=== PATIENT | female | born 1985 | race Caucasian/White ===

== ENCOUNTER 2020-03-30 08:00 | Outpatient (CLI) | payer BC, MEDICAID ==
[2020-03-30 17:54] LABS: MUDS CUTOFF CONCENTRATIONS CUTOFF CONC BELOW:
[2020-03-30 18:10] LABS: AMPHETAMINE SCREEN,URINE NEGATIVE (NEGATIVE); BENZODIAZEPINES SCREEN, URINE NEGATIVE (NEGATIVE); COCAINE SCREEN URINE NEGATIVE (NEGATIVE); METHADONE SCREEN, URINE NEGATIVE (NEGATIVE); METHAMPHETAMINES SCREEN, URINE NEGATIVE (NEGATIVE); OPIATE SCREEN, URINE NEGATIVE (NEGATIVE); OXYCODONE SCREEN, URINE NEGATIVE (NEGATIVE); PROPOXYPHENE SCREEN, URINE NEGATIVE (NEGATIVE); TRICYCLIC ANTIDEPRESSANT,URINE NEGATIVE (NEGATIVE)
== END 2020-03-30 23:59 | disposition home or self-care (01) ==
LOC: LAB.R 08:00
PROVIDERS: ATTEND Obstetrics & Gynecology
DX: Z32.01 Encounter for pregnancy test, result positive (principal)
CPT/HCPCS: 80306

== ENCOUNTER 2020-05-01 16:34 | Outpatient (CLI) | payer BC, MEDICAID ==
--- NOTE | 2020-05-02 16:43 | Ultrasound Report ---
PROCEDURE: OB First Trimester INDICATIONS: POSITIVE TEST OUTSIDE/PRIOR DATING DATA: Last menstrual period (LMP): 02/13/2020. LMP-based estimated date of delivery (GAUDENCIO): . First dating scan (date and location): 05/01/2020. Estimated date of delivery (GAUDENCIO) from first dating scan: . TECHNIQUE: Real-time scanning was performed of the fetus and maternal pelvic organs, with image documentation. COMPARISON: None FINDINGS: Embryo: Single live intrauterine is identified with crown-rump length measuring 5.4 sq cm spine to 12 weeks 0 days. Heart tones are identified at 156 bpm. RICK is grossly within normal limits. Placenta is anterior. Maternal organs: Ovaries demonstrate a left corpus luteal cyst.. Limited images through the kidneys demonstrate no hydronephrosis. IMPRESSION: 1. Single live intrauterine with ultrasound gestational age of 12 weeks 0 days with an ultr asound GAUDENCIO of 11/13/2020 2. Follow-up imaging at 20-22 weeks for dates and anatomy is recommended. Reviewed by: Margarita Metzger MD on 05/02/2020 4:41 PM PDT Approved by: Margarita Metzger MD on 05/02/2020 4:41 PM PDT Station ID: [id number]
== END 2020-05-01 16:35 | disposition home or self-care (01) ==
LOC: DI 16:34
PROVIDERS: ATTEND Obstetrics & Gynecology
DX: Z32.01 Encounter for pregnancy test, result positive (principal)
CPT/HCPCS: 76801

== ENCOUNTER 2020-05-04 07:00 | Outpatient (CLI) | payer MEDICAID ==
[2020-05-04 23:05] LABS: TRICHOMONAS VAGINALIS DNA NEGATIVE (NEGATIVE)
== END 2020-05-04 23:59 | disposition home or self-care (01) ==
LOC: LAB.R 07:00
PROVIDERS: ATTEND Nurse Practitioner Obstetrics & Gynecology
DX: Z11.3 Encounter for screening for infections with a predominantly sexual mode of transmission (principal)
CPT/HCPCS: 87491; 87591; 87661

== ENCOUNTER 2020-05-10 16:45 | Outpatient (CLI) | payer SELFPAY | END 2020-05-10 16:46 | disposition home or self-care (01) | LOC: LAB 16:45 | PROVIDERS: ATTEND Nurse Practitioner Obstetrics & Gynecology | DX: Z34.81 Encounter for supervision of other normal pregnancy, first trimester (principal); Z36.9 Encounter for antenatal screening, unspecified | CPT/HCPCS: 36415 ==

== ENCOUNTER 2020-06-07 16:41 | Outpatient (CLI) | payer BC, MEDICAID ==
[2020-06-07 16:58] LABS: BILIRUBIN,URINE NEGATIVE (NEGATIVE); GLUCOSE, URINE (UA) NEGATIVE (NEGATIVE); KETONES,URINE (UA) NEGATIVE (NEGATIVE); LEUKOCYTE ESTERASE, URINE NEGATIVE (NEGATIVE); NITRITE,URINE NEGATIVE (NEGATIVE); OCCULT BLOOD,URINE NEGATIVE (NEGATIVE); PROTEIN,URINE NEGATIVE (NEGATIVE); UROBILINOGEN,URINE 0.2 (NORMAL) E.U./dL (NORMAL)
[2020-06-07 17:09] LABS: BACTERIA,URINE Rare /HPF (None Seen); CLARITY,URINE CLEAR (CLEAR); RBC,URINE None Seen /HPF (0-5); SQUAMOUS EPITHELIAL CELL,UR FEW Squamous (<= Few)
== END 2020-06-07 16:42 | disposition home or self-care (01) ==
LOC: LAB 16:41
PROVIDERS: ATTEND Advanced Practice Midwife
DX: Z34.90 Encounter for supervision of normal pregnancy, unspecified, unspecified trimester (principal); Z36.89 Encounter for other specified antenatal screening
CPT/HCPCS: 81001; 87086

== ENCOUNTER 2020-07-04 15:23 | Outpatient (CLI) | payer BC, MEDICAID ==
--- NOTE | 2020-07-05 14:55 | Ultrasound Report ---
PROCEDURE: OB Detailed Eval INDICATIONS: SUPERVISION OF OUTSIDE/PRIOR DATING DATA: Last menstrual period (LMP): 02/13/2020. LMP-based estimated date of delivery (GAUDENCIO): 11/19/20. First dating scan (date and location): 05/01/2020. Estimated date of delivery (GAUDENCIO) from first dating scan: 11/13/20. TECHNIQUE: Real-time scanning was performed of the fetus, with image documentation and biometric measurements. Endovaginal scanning: Not performed. COMPARISON: OB ultrasound 05/01/2020. FINDINGS: General: A single living intrauterine gestation is present. Presentation: Variable Placenta: Placental position is anterior, without previa. Amniotic fluid index: 16.5 cm, 69.3% for gestational age; largest pocket 4.77 cm. heart rate: 140 beats per minute. Maternal cervical canal: 5.8 cm long; normal length is 2.5 cm or more. biometrics: Biparietal diameter: 20 weeks 5 days Head circumference: 21 weeks 0 day Abdominal circumference: 21 weeks 4 days Femur length: 20 weeks 1 day Estimated gestational age from initial scan: 21 weeks 1 day. Composite gestational age from present scan: 20 weeks 5 days Estimated weight and percentile: 387 gm; 33% for contrast sedation age Measurement variability in biometric dating: +/- 10 days from 12-20 weeks gestation, +/- 2 weeks from 20-30 weeks gestation, +/- 3 weeks at 30 weeks gestation or later. Anatomic survey: Neuro: Ventricles are normal at less than 10 mm. Cisterna magna is normal at 3-11 mm. Cerebellum i s normal in size and morphology. Nuchal skin fold: Not well seen. Face: Nose and lips, facial profile are normal. Spine: No evidence for spina bifida. Heart: 4-chambered heart is present, with normal ventricular outflow tracts. Diaphragm: Diaphragm is intact. Stomach: Left-sided stomach is present. Kidneys: Mild bilateral renal pelviectasis (4.4 mm the right and 5 mm on the left). Normal is less t bonilla 5 mm in 2nd trimester, less than 7 mm in 3rd trimester. Cord: 3 vessel cord has orthotopic insertion. Bladder: Normal in size. Extremities: All 4 extremities are visualized. IMPRESSION: 1. A single living intrauterine gestation with appropriate interval growth. 2. Mild renal pelviectasis bilaterally. Follow-up imaging is suggested. 3. nuchal area not well seen. 4. Otherwise normal anatomic survey. Reviewed by: Georgiana Huang MD on 07/05/2020 2:54 PM PST Approved by: Georgiana Huang MD on 07/05/2020 2:54 PM PST Station ID: [id number]
== END 2020-07-04 15:24 | disposition home or self-care (01) ==
LOC: DI 15:23
PROVIDERS: ATTEND Advanced Practice Midwife
DX: Z36.89 Encounter for other specified antenatal screening (principal); O35.8XX0 Maternal care for other (suspected) fetal abnormality and damage, not applicable or unspecified; Z3A.21 21 weeks gestation of pregnancy

== ENCOUNTER 2020-07-17 16:54 | Outpatient (CLI) | payer BC, MEDICAID ==
[2020-07-17 17:41] LABS: BASOPHILS % (AUTO) 0.3 %; EOSINOPHILS # (AUTO) 0.1 10^3/uL (0.0-0.7); EOSINOPHILS % (AUTO) 0.8 %; HGB - HEMOGLOBIN 11.7 g/dL (12.0-16.0); LYMPHOCYTES # (AUTO) 2.4 10^3/uL (1.5-3.5); LYMPHOCYTES % (AUTO) 20.4 %; MEAN CORPUSCULAR HGB CONC 34.4 g/dL (32.0-36.0); MEAN CORPUSCULAR VOLUME 104.6 fL (81.0-99.0); MEAN PLATELET VOLUME 11.2 fL (7.9-10.8); MONOCYTES # (AUTO) 0.8 10^3/uL (0.0-1.0); MONOCYTES % (AUTO) 6.9 %; NEUTROPHILS # (AUTO) 8.2 10^3/uL (1.5-6.6); NEUTROPHILS % (AUTO) 70.7 %; PLT - PLATELET COUNT 151 10^3/uL (130-450); RED BLOOD COUNT 3.25 10^6/uL (4.20-5.40); RED CELL DISTRIBUTION WIDTH 13.2 % (12.0-15.0); WHITE BLOOD COUNT 11.6 x10^3/uL (4.8-10.8)
[2020-07-18 12:17] LABS: HEPATITIS C ANTIBODY NON-REACTIVE (NON-REACTIVE)
[2020-07-18 12:18] LABS: HEPATITIS B SURFACE ANTIGEN NON-REACTIVE (NON-REACTIVE)
[2020-07-18 13:22] LABS: HIV AG/AB 4TH GEN NON-REACTIVE (NON-REACTIVE)
== END 2020-07-17 16:55 | disposition home or self-care (01) ==
LOC: LAB 16:54
PROVIDERS: ATTEND Obstetrics & Gynecology
DX: Z34.90 Encounter for supervision of normal pregnancy, unspecified, unspecified trimester (principal)
CPT/HCPCS: 36415; 81599; 85025; 86592; 86762; 86787; 86803; 86850; 86900; 86901; 87340; 87389

== ENCOUNTER 2020-08-01 16:41 | Outpatient (CLI) | payer BC, MEDICAID ==
--- NOTE | 2020-08-02 10:09 | Ultrasound Report ---
PROCEDURE: OB F/U or Repeat INDICATIONS: F/U PYELECTASIS OUTSIDE/PRIOR DATING DATA: Last menstrual period (LMP): 02/13/2020. LMP-based estimated date of delivery (GAUDENCIO): 11/19/2020. First dating scan (date and location): 05/01/2020. Estimated date of delivery (GAUDENCIO) from first dating scan: 11/13/2020. TECHNIQUE: Real-time scanning was performed of the fetus, with image documentation and biometric measurements. Endovaginal scanning: Performed COMPARISON: None. FINDINGS: General: A single living intrauterine gestation is present. Presentation: Cephalic Placenta: Placental position is anterior, without previa. Amniotic fluid index: 17.8 cm, 75.4% for gestational age. heart rate: 145 beats per minute. Maternal cervical canal: 4.7 cm long; normal length is 2.5 cm or more. biometrics: Biparietal diameter: Not obtained Head circumference: Not obtained Abdominal circumference: Not obtained Femur length: Not obtained Estimated gestational age from initial scan: 25 weeks 1 day. Composite gestational age from present scan: Not obtained Estimated weight and percentile: Not obtained Measurement variability in biometric dating: +/- 10 days from 12-20 weeks gestation, +/- 2 weeks from 20-30 weeks gestation, +/- 3 weeks at 30 weeks gestation or more. The chest/diaphragm, stomach/abdomen, and urinary bladder have a grossly normal appearance. A placent al garcía is noted. Mild bilateral pelviectasis was noted bilaterally on this ultrasound dated 07/04/2020 measuring 5.2 mm on the left and 4.4 mm on the right. On today's ultrasound the kidneys appear normal with no pelviec tasis. IMPRESSION: Mild bilateral renal pelviectasis on 07/05/2020 has resolved. Reviewed by: Jonathon Mae on 08/02/2020 10:08 AM PST Approved by: Jonathon Mae on 08/02/2020 10:08 AM PST Station ID: [id number]
== END 2020-08-01 16:42 | disposition home or self-care (01) ==
LOC: DI 16:41
PROVIDERS: ATTEND Obstetrics & Gynecology
DX: O26.832 Pregnancy related renal disease, second trimester (principal); N28.9 Disorder of kidney and ureter, unspecified; Z3A.25 25 weeks gestation of pregnancy

== ENCOUNTER 2020-08-17 08:37 | Outpatient (CLI) | payer BC, MEDICAID ==
[2020-08-17 09:56] LABS: HGB - HEMOGLOBIN 12.1 g/dL (12.0-16.0); MEAN CORPUSCULAR HEMOGLOBIN 36.6 pg (27.0-31.0); MEAN CORPUSCULAR HGB CONC 34.5 g/dL (32.0-36.0); MEAN PLATELET VOLUME 11.9 fL (7.9-10.8); RED BLOOD COUNT 3.31 10^6/uL (4.20-5.40); RED CELL DISTRIBUTION WIDTH 13.2 % (12.0-15.0); WHITE BLOOD COUNT 10.3 x10^3/uL (4.8-10.8)
== END 2020-08-17 08:38 | disposition home or self-care (01) ==
LOC: LAB 08:37
PROVIDERS: ATTEND Advanced Practice Midwife
DX: Z34.90 Encounter for supervision of normal pregnancy, unspecified, unspecified trimester (principal); Z36.89 Encounter for other specified antenatal screening
CPT/HCPCS: 36415; 82950; 85027

== ENCOUNTER 2020-10-30 08:00 | Outpatient (CLI) | payer BC, MEDICAID | END 2020-10-30 23:59 | disposition home or self-care (01) | LOC: LAB 08:00 | PROVIDERS: ATTEND Nurse Practitioner Obstetrics & Gynecology | DX: Z36.85 Encounter for antenatal screening for Streptococcus B (principal) | CPT/HCPCS: 87797 ==

== ENCOUNTER 2020-11-12 17:48 | Inpatient (IN) | payer BC, MEDICAID ==
[2020-11-12 19:02] LABS: RUPTURE OF MEMBRANES PLUS POSITIVE (NEGATIVE)
[2020-11-12] MEDS ORDERED: OXYTOCIN 10 UNIT/ML VIAL IM PRN (19:16)
[2020-11-12] MEDS ORDERED: CARBOPROST TROMETHAMINE 250 MCG/ML AMP IM PRN (19:16)
[2020-11-12] MEDS ORDERED: miSOPROStoL 200 MCG TABLET BC PRN (19:16)
[2020-11-12] MEDS ORDERED: METHYLERGONOVINE 0.2 MG/ML VIAL IM PRN (19:16)
[2020-11-12] MEDS ORDERED: TRANEXAMIC ACID IN NACL 1,000 MG/100 ML BAG IV PRN (19:16)
[2020-11-12] MEDS ORDERED: OXYTOCIN/SODIUM CHLORIDE 500 ML IV PRN (19:16)
[2020-11-12] MEDS ORDERED: SODIUM CHLORIDE FLUSH 0.9% 10 ML SYRINGE IVP PRN (19:16)
[2020-11-12 19:55] LABS: BASOPHILS % (AUTO) 0.3 %; EOSINOPHILS # (AUTO) 0.1 10^3/uL (0.0-0.7); EOSINOPHILS % (AUTO) 0.6 %; HCT - HEMATOCRIT 38.4 % (37.0-47.0); HGB - HEMOGLOBIN 13.4 g/dL (12.0-16.0); LYMPHOCYTES # (AUTO) 2.5 10^3/uL (1.5-3.5); LYMPHOCYTES % (AUTO) 15.7 %; MEAN CORPUSCULAR HEMOGLOBIN 35.8 pg (27.0-31.0); MEAN CORPUSCULAR HGB CONC 34.9 g/dL (32.0-36.0); MEAN CORPUSCULAR VOLUME 102.7 fL (81.0-99.0); MEAN PLATELET VOLUME 11.8 fL (7.9-10.8); MONOCYTES # (AUTO) 1.2 10^3/uL (0.0-1.0); MONOCYTES % (AUTO) 7.5 %; NEUTROPHILS # (AUTO) 11.7 10^3/uL (1.5-6.6); NEUTROPHILS % (AUTO) 74.6 %; PLT - PLATELET COUNT 144 10^3/uL (130-450); RED BLOOD COUNT 3.74 10^6/uL (4.20-5.40); RED CELL DISTRIBUTION WIDTH 12.7 % (12.0-15.0); WHITE BLOOD COUNT 15.7 x10^3/uL (4.8-10.8)
--- NOTE | 2020-11-12 21:13 | HISTORY & PHYSICAL EXAMINATION ---
Admit History - Visit Reason Visit Reason: Contractions - : 1 Parity: 0 Premature: 0 Ectopic: 0 : 0 Care: positive: Other ([facility]) Risk/History: positive: None Complications This : positive: None Smoking Status: Former smoker - Mother's Labs Mother's Blood Type: positive: A Mother's RH: positive: Positive GBS: positive: Group B Step Negative Rubella Status: positive: Immune - Other Maternal History Other Maternal History: -35yo at 39.0wks gestation who presents to Labor and Delivery with contractions that are about every 4 to 5 minutes. -Upon admission to triage she reports intermittent wetness to her underwear over the last week. She reports an increase in mucus like discharge last night, but no noticeable increase in clear fluid output. -Reports movement -Denies ctx/VB/LOF - care with [facility] which has been adequate - Complications *None -Dating Criteria *Initial U/S: 05/01/2020 @ 12.0wks c/w LMP dating -OB Hx *G1: current -Medications * vitamin-daily -Allergies *Bee Stings (severe)- throat constriction, hives *Minocyclen (mild)- itchy feet -Medical History *Non contributory -Surgical History *Spinal fusion 2009 -Family History *MGF- alcoholism *PGM- CAD *PGF- Alzheimers dementia -Social History *Non contributory - Labs, Immunizations, and Findings Initial U/S: 05/01/2020 @ 12.0wks c/w LMP dating A pos/Rubella immune VZV: immune Genetic testing: [place] negative FAS: Anterior placenta. efw 33%. 3VC. Normal fluid. Mild pelviectasis, f/u indicated. Unlcear nuchal views, f/u indicated. 08/01/2020 Completion FAS WNL; pylectasis resolved Glucola 101 Influenza: 05/04/2020 TDAP 09/05/2020 GBS at 37.1- negative HSV: denies self and partner Breast pump Rx -has MOD: Anticipate ; Partner Luis. GIRL: Erika; Concern for 5 fused vertebrea surrounding t12; desires unmedicated delivery. Consider anesthesia consult on admission for evaluation in case of emergency however pt desires unmedicatd delivery pp contraception: natural family planning, interested in Phexxi, condoms pap: 2018 WNL- pap pp (requested report) -SVE /-2 -ROM+ positive -Vertex by wilder -EFW by anastacio's 7# - Physical Exam: Normocephalic, atraumatic Abdomen gravid, soft, nontender Edema- none Psych- wnl -FHTs per flowsheet -Assessment *35yo at 39.0wks gestation in early labor *Ruptured for unknown length of time- advised to ACOG recommendation to start augmentation, including risks/benefits. Would like to wait. *Afebrile, no tachycardia, WBCs 15.7- no signs of infection at this time * Heart Tones- Category II due to periods of minimal variability, otherwise reassuring -Plan *Admit to L&D *Consider Pitocin augmentation when patient permits, encouraged reevaluation of labor progress after six hours of known rupture *Monitoring- Continuous *Comfort measures available- position changes, whirlpool tub, fentanyl, and epidural per maternal preference *Diet/Activity- per maternal preference *Anticipate Meds/Allgy - Allergies Allergies/Adverse Reactions: Allergies Allergy/AdvReac Type Severity Reaction Status Date / Time bee venom protein (honey bee) Allergy Unknown Verified 11/12/20 19:50 minocycline Allergy Itching Verified 11/12/20 20:14 Physical - Abdominal Exam Vital Signs: Temp Pulse Resp BP Pulse Ox 37.0 C 75 16 112/61 100 11/12/20 19:38 11/12/20 19:38 11/12/20 19:38 11/12/20 19:38 11/12/20 18:05
[2020-11-12] MEDS ORDERED: OXYTOCIN/SODIUM CHLORIDE 500 ML IV SCH (23:45)
--- NOTE | 2020-11-12 23:57 | PROVIDER PROGRESS NOTE ---
Labor Progress Note - Uterine Monitoring Uterine Monitoring Mode: positive: External toco Contraction Frequency (min/apart): 3-5 Contraction Intensity: positive: Moderate Uterine Resting Tone: positive: Soft - Monitoring Monitor Mode: positive: External ultrasound Heart Rate Baseline: 135 Heart Rate Variability: positive: Moderate (6-25 bmp) Accelerations: positive: Present, 15x15 Decelerations: positive: None Strip Review: positive: Category I - Vaginal Exam Dilation (in cm): 3 Effacement (%): 90 Station: -1 Cervical Position: Anterior - Labor Progress Note Labor Progress Note/Additional Text: S: Felicia is resting in bed, using nitrous gas to manage labor pains. FOB is supportiv e at bedside. She reports the contractions as feeling stronger than before. She is feeling better after having not eaten much since noon and has now had some nourishment. O: SVE -1/soft/anterior/vertex- a forebag is felt during exam Underwear on with no pad, minimal moisture noted on underwear and none on disposable pad beneath her Afebrile A: 35yo at 39.0wks gestation Modest cervical change Discussed augmentation vs expectant management Reassuring FHT P: Continue with nitrous for labor pain management, may utilize tub, position changes, fentanyl, or epidural per maternal preference Would like to wait for augmentation at this time; pitocin ordered for if desired or if contractions slow Continuous monitoring Anticipate
[2020-11-13] MEDS ORDERED: SODIUM CHLORIDE FLUSH 0.9% 10 ML SYRINGE IVP SCH (01:00)
[2020-11-13] MEDS: LACTATED RINGERS 1,000 ML IV SCH ×2 (04:35→14:36)
--- NOTE | 2020-11-13 07:49 | PROVIDER PROGRESS NOTE ---
Labor Progress Note - Uterine Monitoring Uterine Monitoring Mode: positive: External toco Contraction Frequency (min/apart): 2-4 Contraction Intensity: positive: Moderate to strong Uterine Resting Tone: positive: Soft - Monitoring Monitor Mode: positive: External ultrasound Heart Rate Baseline: 140 Heart Rate Variability: positive: Moderate (6-25 bmp) Accelerations: positive: Present, 15x15 Decelerations: positive: None Strip Review: positive: Category I - Vaginal Exam Dilation (in cm): 3.5 Effacement (%): 90 Station: -1 Cervical Position: Anterior - Labor Progress Note Labor Progress Note/Additional Text: S: Felicia is struggling with her contractions, tearful. Utilizing nitrous oxide for labor management. FOB supportive. She is declining any caloric intake right now, reporting she feels acidic. Anesthesia consult was discussed with the RN, however Felicia declines at this time. O: SVE at 0430 3.5/90/-1/forebag Pitocin at 4mU/min Afebrile A: 35yo at 39.1wks gestation No significant cervical change P: Continue with pitocin augmentation, was very slow in the night, encouraged oncoming RN to ensure effective labor pattern. Will recheck cervix when pattern effective for four hours Encouraged use of whirlpool tub Anesthesia made aware of presence of patient with history of lumbar fusion Reassured Felicia to normalcy of slow labor progression prior to 4-6cm, and discussed need for ongoing augmentation due to unclear rupture time Anticipate
[2020-11-13] MEDS ORDERED: ONDANSETRON 4 MG/2 ML VIAL IVP PRN (09:51)
--- NOTE | 2020-11-13 10:46 | PROVIDER PROGRESS NOTE ---
Labor Progress Note - Uterine Monitoring Uterine Monitoring Mode: positive: External toco Contraction Frequency (min/apart): 2-4 Contraction Intensity: positive: Moderate to strong Uterine Resting Tone: positive: Soft - Monitoring Monitor Mode: positive: External ultrasound Heart Rate Baseline: 150 Heart Rate Variability: positive: Moderate (6-25 bmp) Accelerations: positive: Present, 15x15 Decelerations: positive: None - Vaginal Exam Dilation (in cm): 6 Effacement (%): 90 Station: 0 Cervical Position: Anterior - Labor Progress Note Labor Progress Note/Additional Text: S: Felicia is pacing around the room, using position changes and breathing techniques to manage labor discomfort. FOB is supportive at her side. She is coping well. O: Blood show SVE 6/90/0/ no forebag felt (not examined through a contraction) Underwear present, not wet Pitocin at 5mU/min A: 35yo at 39.1wks gestation in active labor Adequate cervical change Adequate uterine activity Reassuring FHTs P: Anticipate Continue with pitocin augmentation Continuous monitoring Comfort measures per maternal preference
[2020-11-13] MEDS: LIDOCAINE-MPF 1% 30 ML VIAL ID PRN ×2 (17:25→17:50)
[2020-11-13] MEDS ORDERED: fentaNYL 100 MCG/2 ML VIAL IVP ONE (17:40)
[2020-11-13] MEDS ORDERED: WITCH HAZEL/GLYCERIN 1 PAD TOP PRN (18:16)
[2020-11-13] MEDS ORDERED: HYDROCORTISONE 1% CREAM 28 GM TUBE PR PRN (18:16)
--- NOTE | 2020-11-13 18:22 | DELIVERY NOTE ---
Delivery Note - Labor Labor: positive: Spontaneous, Augmented by oxytocin - Delivery Method Delivery Method: positive: Spontaneous vaginal delivery - Presentation Presentation: positive: [place] - left occiput anterior - Nuchal Cord Nuchal Cord: positive: None - Amniotic Fluid Description Amniotic Fluid Description: positive: Clear - Laceration Laceration: positive: 3rd degree, Perineal, Vaginal - Suture Suture Type: positive: Vicryl Suture Size: positive: 2-0, 3-0 - Delivery Outcome Delivery Outcome: positive: Livebirth - Marks: positive: Placed in direct skin contact with mother, Stimulated, [place] used sex: positive: Female : 6 : 9 - Cord Cord: positive: 3 vessels - Placenta Placenta: positive: Intact, Spontaneous - Estimated Blood Loss Estimated Blood Loss (in cc): 300 - Post Delivery Events Post Delivery Events: positive: No post delivery events - Delivery Comments (Free Text/Narrative) Delivery Comments (Free Text/Narrative): Note: Labor: This 35 year old, , @39.0 wks gestation by 12.0 week Ultrasound, confirmed by LMP, presented @ 1800 in early labor with report of leaking fluid. ROM+ positive. Cervix was 3/75/-2 and vertex. FHR pattern demonstrated 135 baseline in a Category I pattern. Normal labor course. Augmentation with Pitocin initiated. AROM occurred at 1517 and amount and color of fluid were noted to be moderate and clear. : Normal of a 3560gm female , named Erika, on 11/13/2020 @ 1707. Nuchal not present. The was placed on maternal abdomen, stimulated, dried and placed skin to skin. Apgars 6 at one minute and 9 at five minutes. The umbilical cord was allowed to stop pulsating at which time it was doubly clamped by CNM and cut by FOB. Pitocin administered via IV for hemostasis. Fundal massage and gentle cord traction applied for active third stage management. Cord blood was obtained. Placenta delivered spontaneously and intact at 1717. Three vessel cord. EBL 300mL. Fourth Stage: Uterine fundus firm and without excessive bleeding. The perineum, vagina, and cervix were inspected and found have sustained a third degree vaginal and perineal laceration- backup MD called in to do repair. Please see procedure note. Vaginal and rectal examination following repair was done. Tissues well approximated. initiated. Family bonding well. Both mother and baby are in stable condition.
--- NOTE | 2020-11-13 18:49 | PROCEDURE REPORT ---
Hospitalist Procedure Note - Procedure Note Procedure Note: Asked by CNM to evaluate patient's laceration for possible 3rd degree laceration. With a rectal exam, a 1cm split in the capsule of the external anal sphinctor was seen. A few muscle fibers were disrupted but it was not even close to full-thickness. The laceration was numbed with local, pt was given fentanyl IV as well for pain control. The capsule was reapproximated with a 2-0 vicryl running suture. A finger was placed in the rectum throughout the capsule closure and no sutures were placed through the rectal mucosa. The remainder of the laceration was closed with 2-0 and 4-0 vicryl to restore normal anatomy. Patient returned to [facility] care for remainder of course.
[2020-11-13] MEDS: ACETAMINOPHEN 500 MG TABLET PO SCH (20:22)
[2020-11-13] MEDS: IBUPROFEN 600 MG TABLET PO SCH (20:22)
[2020-11-13] MEDS: DOCUSATE SODIUM 100 MG CAPSULE PO SCH (20:23)
[2020-11-14] MEDS: IBUPROFEN 600 MG TABLET PO SCH ×3 (04:27→22:23)
[2020-11-14] MEDS: DOCUSATE SODIUM 100 MG CAPSULE PO SCH ×2 (08:19→22:24)
[2020-11-14] MEDS: ACETAMINOPHEN 500 MG TABLET PO SCH (08:19)
--- NOTE | 2020-11-14 15:31 | PROVIDER PROGRESS NOTE ---
Subjective - Prog Note Date Prog Note Date: 11/14/20 Prog Note Time: 14:30 - Subjective Pt reports feeling: Improved Subjective: S: Felicia is resting in bed, with her body tilted to one side. She reports that her bottom is still quite sore, but ice, position changes, and NSAIDs are effective for management. She reports as going well. Her throat is sore, likely from the noises of an unmedicated delivery, and she is requesting medication for this She reports her bleeding as like a normal period O: Lochia rubra-moderate Fundus firm A: 35yo s/p on 11/13/2020 with 3rd degree laceration Normal recovery P: Cepacol q2h prn throat discomfort Continue with routine care Evaluate for discharge home tomorrow Objective - Vital Signs/Intake & Output Vital Signs: Vital Signs x48h Temp Pulse Resp BP Pulse Ox 11/14/20 09:00 37.0 C 84 14 119/63 100 Intake & Output: Intake & Output 11/11/20 11/12/20 11/13/20 11/14/20 23:59 23:59 23:59 23:59 Intake Total 1012.583 Output Total 500 Balance 512.583 - Lab Results Fish Bones: 11/12/20 19:35 Other Labs: Lab Results x24hrs 11/12/20 Range/Units 20:25 Coronavirus (PCR) NEGATIVE
[2020-11-14] MEDS: BENZOCAINE/MENTHOL LOZENGE MM PRN ×3 (16:39→22:23)
[2020-11-15] MEDS: IBUPROFEN 600 MG TABLET PO SCH (06:08)
[2020-11-15] MEDS: BENZOCAINE/MENTHOL LOZENGE MM PRN (06:08)
[2020-11-15 08:50] VITALS: BP 125/67
--- NOTE | 2020-11-15 09:38 | PROVIDER PROGRESS NOTE ---
Subjective - Prog Note Date Prog Note Date: 11/15/20 Prog Note Time: 09:35 - Subjective Pt reports feeling: Improved Subjective: S: Felicia is resting in bed and holding sleeping Erika. She has had some difficulties overnight but has greatly improved overnight. She reports her bleeding as filling up about a pad and a half since midnight. She denies significant discomfort in her perineum. O: Lochia rubra Fundus firm A: 35yo s/p on pp day 2 Normal recovery P: Continue with routine care Evaluate for discharge home today Objective - Vital Signs/Intake & Output Vital Signs: Vital Signs x48h Temp Pulse Resp BP BP Pulse Ox 11/15/20 08:43 37.3 C 90 16 125/67 100 11/15/20 03:56 71 18 101/46 L 100 Intake & Output: Intake & Output 11/12/20 11/13/20 11/14/20 11/15/20 23:59 23:59 23:59 23:59 Intake Total 1012.583 320 100 Output Total 500 Balance 512.583 320 100 - Lab Results Fish Bones: 11/12/20 19:35
--- NOTE | 2020-11-15 09:47 | DISCHARGE SUMMARY ---
Discharge Summary - HPI History of Present Illness: Admit Date 11/12/2020 Discharge Date 11/15/2020 Diagnosis on Admission: 1. A 35yo at 39.0 week intrauterine 2. Early Active Labor- with unknown ROM time Diagnosis on Discharge 1. A 35yo s/p spontaneous vaginal delivery on 11/13/2020 2. Normal recovery Brief History: She is a patient at [facility] who presented on 11/12/2020 with complaints of contractions and report of wetness over the last week. The patient was found to contract every 2 to 5 minutes and her cervix was 3cm dilated, 75%effaced, and -7 station. She as augmented with pitocin and spontaneously delivered a viable female named Erika. Apgars were 6 and 9- and 1 and 5 minutes respectively. EBL 300mL. The patient has a 3rd degree laceration that was repaired with2-0 vicryl and 3-0 vicryl in usual fashion under sterile conditions by . She has been doing well in her course. She is ambulating and tolerating a regular diet. She is urinating without difficulty and her lochia is normal. Her pain is well controlled with oral medications. She will be discharged home today on day #2 without need for prescriptions, but is encouraged to take stool softeners and eat a high fiber diet for three weeks. She intends to follow up with Midwifery at [facility] in 1, and 6 weeks for routine visit. She has been given precautions to call if she has any worsening fevers, chills, abdominal pain, increased bleeding or foul smelling vaginal lochia. - ALLERGIES Allergies/Adverse Reactions: Allergies Allergy/AdvReac Type Severity Reaction Status Date / Time bee venom protein (honey bee) Allergy Unknown Verified 11/12/20 19:50 minocycline Allergy Itching Verified 11/12/20 20:14 - LABS Result Diagrams: 11/12/20 19:35
--- NOTE | 2020-11-15 09:50 | Discharge Plan ---
Discharge Plan Problem Reviewed?: Yes Disposition: Home, Self Care Condition: Good Activity Restrictions: No Restrictions Shower Restrictions: No Driving Restrictions: No Weight Bearing: Full Weight Additional Instructions or Follow Up instructions: Follow up with midwifery at 1 and 6 weeks Take stool softeners and eat high fiber diet for at least three weeks No Smoking: If you smoke, Please STOP! Call for help. Follow-up with: Anika Valle ARNP [Provider Admit Priv/Credential] -
[2020-11-15] MEDS: DOCUSATE SODIUM 100 MG CAPSULE PO SCH (12:14)
--- NOTE | 2020-11-15 14:12 | Labor Flowsheet ---
Labor Flowsheet Datetime Report Generated by CPN: 11/15/2020 14:11 Datetime: 11/15/2020 08:17 VITAL SIGNS NBP Sys/Anya/Mean (mmHg): 125 : 67 : 80 Pulse: 90 Datetime: 11/13/2020 18:45 Stage of : Recovery Respirations: 18 Datetime: 11/13/2020 18:00 Temperature (C): 36.8 Datetime: 11/13/2020 17:31 Patient Care Comments: Dr. Trenton @ bedside for repair Datetime: 11/13/2020 17:29 Membranes Ruptured Date/Time: 11/13/2020 15:17 Datetime: 11/13/2020 17:17 Stage 2 Comments: placenta Datetime: 11/13/2020 17:14 SpO2 (%): 100 Datetime: 11/13/2020 17:07 UTERINE ACTIVITY Monitor Mode: External Frequency (min): 2.5-3.5 Quality: Strong Duration (sec): 70-90 Pattern: Normal: <= 5 Contractions in 10 Minutes Resting Tone (Palpate): Relaxed ASSESSMENT A Monitor Mode: Telemetry FHR Baseline Rate : 150 Variability: Moderate 6-25 bpm Accelerations: 15X15 Decelerations: Variable Category: Category II Datetime: 11/13/2020 17:01 Pushing Progress: with Pushing Datetime: 11/13/2020 16:34 LaborFlag: Labor Datetime: 11/13/2020 16:20 Contraction Comments: RN @ bedside timing ctx Datetime: 11/13/2020 16:19 Pushing Position: Pushing Left Side; Pushing Lithotomy Datetime: 11/13/2020 16:05 Monitor Interventions for UA: [place] Adjusted Comments: Poor tracing during ctx; FHR audible at 140-145 Datetime: 11/13/2020 16:03 STAGE 2 Pushing: Coached on Pushing; Urge to Push Datetime: 11/13/2020 16:01 VAGINAL EXAM Dilatation (cm): 10.0 Effacement (%): 100 Exam by: Anika Datetime: 11/13/2020 15:54 Patient Position/Activity: Hands-Knees Datetime: 11/13/2020 15:39 Monitor Interventions for FHR: Ultrasound Adjusted Datetime: 11/13/2020 15:17 Membrane Status: Ruptured Membranes Rupture Method: Artificial Amniotic Fluid Color: Clear Amniotic Fluid Amount: Moderate Membrane Comments: bloody show Datetime: 11/13/2020 15:12 Station: 0 Vaginal Exam Comments: bulging bag Datetime: 11/13/2020 14:34 PATIENT CARE IV/Blood Work: IV Infusing per Order; New IV Bag Hung; IV Bag Number @ 2 Datetime: 11/13/2020 12:53 COMMUNICATION Provider Notified (Name): Anika [place] Communication Comments: Notified provider pt feeling rectal pressure with ctx. Datetime: 11/13/2020 12:48 Pain Assessment Comments: feeling rectal pressure with ctx Datetime: 11/13/2020 12:43 I/O Interventions: Up to BR Datetime: 11/13/2020 12:28 Temperature Route: Oral Datetime: 11/13/2020 11:15 Oxygen Method: Room Air Datetime: 11/13/2020 09:57 Antiemetics/Antacids: Zofran (mg) @ 4 Datetime: 11/13/2020 08:21 MEDICATIONS Pitocin (milliunits): Increased to @ 5 Datetime: 11/13/2020 06:05 Pitocin Checklist: At Least 1 Acceleration of 15 bpm x 15 Seconds in 30 Minutes or Adequate Variabi lity; No More than 1 Late Deceleration Occurred in Past 30 Minutes; No More than 2 Variable Decelerat ions > 60 Seconds in Duration and decreasing >60 bpm in 30 minutes; No More than 5 Uterine Contractio ns in 10 Minutes for any 20 Minute Interval; Uterus Palpates Soft between Contractions Datetime: 11/13/2020 05:50 FHR Baseline Changes: No Baseline Change Datetime: 11/13/2020 05:31 PAIN Pain Scale: 8 Pain Presence: Intermittent Pain Type: Cramping; Contraction Datetime: 11/13/2020 05:20 Medication Comments: using nitrous Datetime: 11/13/2020 04:46 Pain Location: Abdomen Datetime: 11/13/2020 00:40 Pain Relief Measures: Comfort Measures Datetime: 11/12/2020 23:41 Pain Coping: Breathing Through Contractions Datetime: 11/12/2020 23:27 Vaginal Bleeding: None Cervix, Consistency: Soft Cervix, Position: Anterior Datetime: 11/12/2020 19:38 MATERNAL ASSESSMENT Level of Consciousness: Alert Headache: Denies Nausea/Vomiting: Denies RUQ Epigastric Pain: Denies Comfort Measures: Breathing/Relaxation
== END 2020-11-15 13:00 | disposition home or self-care (01) | DRG 768 ==
LOC: WFO 17:48 → FBP 17:50 → WFO 19:31
PROVIDERS: ADMIT Advanced Practice Midwife; ATTEND Advanced Practice Midwife
PROC: 10E0XZZ Delivery of Products of Conception, External Approach (ICD-10-PCS; principal; 2020-11-13)
PROC: 0DQR0ZZ Repair Anal Sphincter, Open Approach (ICD-10-PCS; 2020-11-13)
DX: O42.92 Full-term premature rupture of membranes, unspecified as to length of time between rupture and onset of labor (principal); Z37.0 Single live birth; O70.20 Third degree perineal laceration during delivery, unspecified; Z3A.39 39 weeks gestation of pregnancy; Z98.1 Arthrodesis status; Z20.822 Contact with and (suspected) exposure to COVID-19
CPT/HCPCS: 59025; 84112; 85025; 86850; 86900; 86901; 87635; 99212; A9270; J7120

== ENCOUNTER 2020-11-20 11:10 | Outpatient (CLI) | payer BC, MEDICAID ==
--- NOTE | 2020-11-20 12:45 | Labor Flowsheet ---
Labor Flowsheet Datetime Report Generated by CPN: 11/20/2020 12:45 Datetime: 11/15/2020 08:17 VITAL SIGNS NBP Sys/Anya/Mean (mmHg): 125 : 67 : 80 Pulse: 90 Datetime: 11/13/2020 18:45 Stage of : Recovery Respirations: 18 Datetime: 11/13/2020 18:00 Temperature (C): 36.8 Datetime: 11/13/2020 17:31 Patient Care Comments: Dr. Trenton @ bedside for repair Datetime: 11/13/2020 17:29 Membranes Ruptured Date/Time: 11/13/2020 15:17 Datetime: 11/13/2020 17:17 Stage 2 Comments: placenta Datetime: 11/13/2020 17:14 SpO2 (%): 100 Datetime: 11/13/2020 17:07 UTERINE ACTIVITY Monitor Mode: External Frequency (min): 2.5-3.5 Quality: Strong Duration (sec): 70-90 Pattern: Normal: <= 5 Contractions in 10 Minutes Resting Tone (Palpate): Relaxed ASSESSMENT A Monitor Mode: Telemetry FHR Baseline Rate : 150 Variability: Moderate 6-25 bpm Accelerations: 15X15 Decelerations: Variable Category: Category II Datetime: 11/13/2020 17:01 Pushing Progress: with Pushing Datetime: 11/13/2020 16:34 LaborFlag: Labor Datetime: 11/13/2020 16:20 Contraction Comments: RN @ bedside timing ctx Datetime: 11/13/2020 16:19 Pushing Position: Pushing Left Side; Pushing Lithotomy Datetime: 11/13/2020 16:05 Monitor Interventions for UA: [place] Adjusted Comments: Poor tracing during ctx; FHR audible at 140-145 Datetime: 11/13/2020 16:03 STAGE 2 Pushing: Coached on Pushing; Urge to Push Datetime: 11/13/2020 16:01 VAGINAL EXAM Dilatation (cm): 10.0 Effacement (%): 100 Exam by: Anika Datetime: 11/13/2020 15:54 Patient Position/Activity: Hands-Knees Datetime: 11/13/2020 15:39 Monitor Interventions for FHR: Ultrasound Adjusted Datetime: 11/13/2020 15:17 Membrane Status: Ruptured Membranes Rupture Method: Artificial Amniotic Fluid Color: Clear Amniotic Fluid Amount: Moderate Membrane Comments: bloody show Datetime: 11/13/2020 15:12 Station: 0 Vaginal Exam Comments: bulging bag Datetime: 11/13/2020 14:34 PATIENT CARE IV/Blood Work: IV Infusing per Order; New IV Bag Hung; IV Bag Number @ 2 Datetime: 11/13/2020 12:53 COMMUNICATION Provider Notified (Name): Anika [place] Communication Comments: Notified provider pt feeling rectal pressure with ctx. Datetime: 11/13/2020 12:48 Pain Assessment Comments: feeling rectal pressure with ctx Datetime: 11/13/2020 12:43 I/O Interventions: Up to BR Datetime: 11/13/2020 12:28 Temperature Route: Oral Datetime: 11/13/2020 11:15 Oxygen Method: Room Air Datetime: 11/13/2020 09:57 Antiemetics/Antacids: Zofran (mg) @ 4 Datetime: 11/13/2020 08:21 MEDICATIONS Pitocin (milliunits): Increased to @ 5 Datetime: 11/13/2020 06:05 Pitocin Checklist: At Least 1 Acceleration of 15 bpm x 15 Seconds in 30 Minutes or Adequate Variabi lity; No More than 1 Late Deceleration Occurred in Past 30 Minutes; No More than 2 Variable Decelerat ions > 60 Seconds in Duration and decreasing >60 bpm in 30 minutes; No More than 5 Uterine Contractio ns in 10 Minutes for any 20 Minute Interval; Uterus Palpates Soft between Contractions Datetime: 11/13/2020 05:50 FHR Baseline Changes: No Baseline Change Datetime: 11/13/2020 05:31 PAIN Pain Scale: 8 Pain Presence: Intermittent Pain Type: Cramping; Contraction Datetime: 11/13/2020 05:20 Medication Comments: using nitrous Datetime: 11/13/2020 04:46 Pain Location: Abdomen Datetime: 11/13/2020 00:40 Pain Relief Measures: Comfort Measures Datetime: 11/12/2020 23:41 Pain Coping: Breathing Through Contractions Datetime: 11/12/2020 23:27 Vaginal Bleeding: None Cervix, Consistency: Soft Cervix, Position: Anterior Datetime: 11/12/2020 19:38 MATERNAL ASSESSMENT Level of Consciousness: Alert Headache: Denies Nausea/Vomiting: Denies RUQ Epigastric Pain: Denies Comfort Measures: Breathing/Relaxation
== END 2020-11-20 11:45 | disposition home or self-care (01) ==
LOC: WFO 11:10 → FBP 11:13 → WFO 11:45
PROVIDERS: ATTEND Pediatrics
DX: Z39.1 Encounter for care and examination of lactating mother (principal)

== ENCOUNTER 2021-05-09 12:57 | Outpatient (CLI) | payer MEDICAID ==
[2021-05-09 18:23] LABS: T4 (THYROXINE) 7.02 ug/dL (6.09-12.23)
[2021-05-09 18:27] LABS: THYROID STIMULATING HORMONE 1.32 uIU/mL (0.34-5.60)
== END 2021-05-09 12:58 | disposition home or self-care (01) ==
LOC: LAB.N 12:57
PROVIDERS: ATTEND Registered Nurse
DX: E04.2 Nontoxic multinodular goiter (principal)
CPT/HCPCS: 36415; 84436; 84443; 84480

== ENCOUNTER 2021-06-26 13:43 | Outpatient (CLI) | payer MEDICAID ==
[2021-06-26 18:40] LABS: T4 (THYROXINE) 8.13 ug/dL (6.09-12.23)
[2021-06-26 18:44] LABS: THYROID STIMULATING HORMONE 0.36 uIU/mL (0.34-5.60)
== END 2021-06-26 13:44 | disposition home or self-care (01) ==
LOC: LAB 13:43
PROVIDERS: ATTEND Registered Nurse
DX: E03.9 Hypothyroidism, unspecified (principal)
CPT/HCPCS: 36415; 84436; 84443; 84480

== ENCOUNTER 2021-09-11 10:47 | Outpatient (CLI) | payer MEDICAID ==
[2021-09-11 18:30] LABS: THYROID STIMULATING HORMONE 0.29 uIU/mL (0.34-5.60)
[2021-09-11 19:18] LABS: FREE T4 (FREE THYROXINE) 1.31 ng/dL (0.58-1.64)
== END 2021-09-11 10:48 | disposition home or self-care (01) ==
LOC: LAB.N 10:47
PROVIDERS: ATTEND Registered Nurse
DX: E03.9 Hypothyroidism, unspecified (principal)
CPT/HCPCS: 36415; 84439; 84443

== ENCOUNTER 2021-11-14 16:20 | Outpatient (CLI) | payer MEDICAID ==
--- NOTE | 2021-11-15 12:54 | Ultrasound Report ---
PROCEDURE: Head or Neck Soft Tissue INDICATIONS: MULTIPLE THYROID NODULES TECHNIQUE: Real-time scanning was performed of the thyroid gland, with image documentation. COMPARISON: None FINDINGS: Right: Thyroid lobe measures 5.0 x 1.7 x 2.7 cm, and contains nodules Left: Thyroid lobe measures 5.3 x 1.2 x 1.5 cm, and is homogenous in echotexture. Isthmus: 2 mm thick. Nodule number: 1 Location: Right middle pole Size: 2.1 x 1.6 x 1.7 cm. Composition: Solid Echogenicity: Hypoechoic/isoechoic Shape: wider than tall. Margins: Smooth Echogenic foci: None Total points: 4 ACR TI-RADS category: Moderately suspicious Nodule number: 2 Location: Right lower pole Size: 0.5 cm. Composition: Solid Echogenicity: Isoechoic Shape: wider than tall. Margins: Smooth Echogenic foci: None Total points: 3 ACR TI-RADS category: Mildly suspicious Nodule number: 3 Location: Left middle pole Size: 1.2 x 0.6 x 1.0 cm. Composition: Solid Echogenicity: Hypoechoic Shape: wider than tall. Margins: Irregular Echogenic foci: None Total points: 6 ACR TI-RADS category: Moderately suspicious Nodule number: 4 Location: Left lower pole Size: Less than 0.5 cm. Composition: Solid Echogenicity: Hypoechoic Shape: wider than tall. Margins: Smooth Echogenic foci: None Total points: 4 ACR TI-RADS category: Moderately suspicious IMPRESSION: 1. Multinodular thyroid. 2. Based on the recommendations below, the 2.1 cm right middle pole thyroid nodule, moderately suspic ious, is of sufficient size to warrant ultrasound-guided fine-needle aspiration for tissue diagnosis. ACR TI-RADS definitions and recommendations: TI-RADS 1 (benign): 0 points. FNA not needed. TI-RADS 2 (not suspicious): 2 points. FNA not needed. TI-RADS 3 (mildly suspicious): 3 points. "FNA if 2.5 cm or larger, follow up if 1.5 cm or larger (at 1, 3, and 5 years). TI-RADS 4 (moderately suspicious): 4-6 points. "FNA if 1.5 cm or larger, follow up if 1 cm or larger (at 1, 2, 3, and 5 years). TI-RADS 5 (highly suspicious): 7 points or more. "FNA if 1 cm or larger, follow up if 0.5 cm or larger (every year for 5 years). Reviewed by: Aly Gomez MD on 11/15/2021 12:53 PM PDT Approved by: Aly Gomez MD on 11/15/2021 12:53 PM PDT Station ID: [id number]
== END 2021-11-14 16:21 | disposition home or self-care (01) ==
LOC: DI 16:20
PROVIDERS: ATTEND Registered Nurse
DX: E04.2 Nontoxic multinodular goiter (principal)

== ENCOUNTER 2022-09-30 15:16 | Outpatient (CLI) | payer MEDICAID ==
[2022-09-30 15:56] LABS: T4 (THYROXINE) 8.33 ug/dL (6.09-12.23)
[2022-09-30 16:00] LABS: THYROID STIMULATING HORMONE 0.39 uIU/mL (0.34-5.60)
== END 2022-09-30 15:17 | disposition home or self-care (01) ==
LOC: LAB 15:16
PROVIDERS: ATTEND Registered Nurse
DX: E03.9 Hypothyroidism, unspecified (principal); E04.2 Nontoxic multinodular goiter
CPT/HCPCS: 36415; 84436; 84443; 84480

== ENCOUNTER 2022-11-20 13:34 | Outpatient (CLI) | payer MEDICAID ==
[2022-11-20 14:10] LABS: THYROID STIMULATING HORMONE 0.53 uIU/mL (0.34-5.60)
== END 2022-11-20 13:35 | disposition home or self-care (01) ==
LOC: LAB 13:34
PROVIDERS: ATTEND Registered Nurse
DX: E03.9 Hypothyroidism, unspecified (principal)
CPT/HCPCS: 36415; 84443

== ENCOUNTER 2023-08-19 09:20 | Outpatient (CLI) | payer BC ==
[2023-08-19 09:32] LABS: BASOPHILS % (AUTO) 0.3 %; EOSINOPHILS # (AUTO) 0.1 10^3/uL (0.0-0.7); EOSINOPHILS % (AUTO) 1.1 %; HCT - HEMATOCRIT 38.4 % (37.0-47.0); HGB - HEMOGLOBIN 12.7 g/dL (12.0-16.0); LYMPHOCYTES # (AUTO) 1.6 10^3/uL (1.5-3.5); LYMPHOCYTES % (AUTO) 17.1 %; MEAN CORPUSCULAR HEMOGLOBIN 33.5 pg (27.0-31.0); MEAN CORPUSCULAR HGB CONC 33.1 g/dL (32.0-36.0); MEAN CORPUSCULAR VOLUME 101.3 fL (81.0-99.0); MEAN PLATELET VOLUME 11.6 fL (7.9-10.8); MONOCYTES # (AUTO) 0.7 10^3/uL (0.0-1.0); NEUTROPHILS # (AUTO) 6.8 10^3/uL (1.5-6.6); NEUTROPHILS % (AUTO) 73.2 %; PLT - PLATELET COUNT 172 10^3/uL (130-450); RED BLOOD COUNT 3.79 10^6/uL (4.20-5.40); RED CELL DISTRIBUTION WIDTH 12.4 % (12.0-15.0); WHITE BLOOD COUNT 9.3 x10^3/uL (4.8-10.8)
[2023-08-19 09:48] LABS: ALBUMIN 4.2 g/dL (3.2-5.5); ALBUMIN/GLOBULIN RATIO 1.5 (1.0-2.2); ALKALINE PHOSPHATASE 42 IU/L (42-121); ALT ALANINE AMINOTRANSFERASE 14 IU/L (10-60); AST ASPARTATE AMINOTRANSFERASE 14 IU/L (10-42); BILIRUBIN,TOTAL 0.5 mg/dL (0.2-1.0); BUN - BLOOD UREA NITROGEN 6 mg/dL (6-20); CALCIUM 9.3 mg/dL (8.5-10.3); CARBON DIOXIDE - CO2 28 mmol/L (21-32); CHLORIDE 105 mmol/L (101-111); CHOL/HDL RATIO 3.3 (<4.4); CHOLESTEROL 106 mg/dL; CREATININE 0.6 mg/dL (0.6-1.3); GFR - MDRD 112 (>89); GLUCOSE 96 mg/dL (74-104); HDL CHOLESTEROL 32 mg/dL; LDL CHOLESTEROL,CALCULATED 63 mg/dL; POTASSIUM 3.9 mmol/L (3.5-4.5); SODIUM 139 mmol/L (135-145); TRIGLYCERIDES 57 mg/dL (48-352); VLDL CHOLESTEROL 11 mg/dL
[2023-08-19 10:11] LABS: THYROID STIMULATING HORMONE 0.68 uIU/mL (0.34-5.60)
== END 2023-08-19 09:21 | disposition home or self-care (01) ==
LOC: LAB 09:20
PROVIDERS: ATTEND Registered Nurse
DX: Z13.228 Encounter for screening for other metabolic disorders (principal); Z13.220 Encounter for screening for lipoid disorders; Z13.29 Encounter for screening for other suspected endocrine disorder; Z13.0 Encounter for screening for diseases of the blood and blood-forming organs and certain disorders involving the immune mechanism
CPT/HCPCS: 36415; 80053; 80061; 83721; 84443; 85025